=== PATIENT | female | born 1995 | race Caucasian/White ===

== ENCOUNTER 2017-08-31 09:10 | Inpatient (IN) | payer OTHER ==
[2017-08-31] VITALS (11 sets, daily range): BP systolic 115–138; BP diastolic 65–84; Ht 154.9 cm; Wt 80.7 kg
[~2017-08-31] VITALS: Ht 154.9 cm; Wt 80.7 kg
[2017-08-31 10:20] LABS: HEMATOCRIT 33.8 % (36.0-48.0); HEMOGLOBIN 11.3 g/dL (12-16); MCH 28.1 pg (26.0-34.0); MCHC 33.4 g/dL (31.0-37.0); MCV 84.1 fL (80.0-100.0); MEAN PLATELET VOLUME 10.6 fL (7.4-10.4); RBC 4.02 10x6/uL (4.00-5.40); RDW 14.3 % (11.5-14.5); WBC 7.8 10x3/uL (4.8-10.8)
[2017-08-31] MEDS ORDERED: FERROUS SULFATE PO (13:04)
[2017-08-31] MEDS ORDERED: PRENATAL COMPLE1 TAB PO (15:47)
[2017-08-31 21:15] LABS: BASOPHILS 0.2 % (0-2); EOSINOPHILS 0.5 % (0-7); HEMATOCRIT 28.9 % (36.0-48.0); HEMOGLOBIN 9.5 g/dL (12-16); IMMATURE GRANULOCYTES 0.3 % (0-5); LYMPHOCYTES 23.8 % (15-50); MCH 27.5 pg (26.0-34.0); MCHC 32.9 g/dL (31.0-37.0); MCV 83.5 fL (80.0-100.0); MEAN PLATELET VOLUME 10.4 fL (7.4-10.4); MONOCYTES 5.9 % (2-11); NEUTROPHILS 69.3 % (40-80); RBC 3.46 10x6/uL (4.00-5.40); RDW 14.2 % (11.5-14.5)
[2017-08-31 21:17] LABS: PLATELET COUNT 167 10x3/uL (130-400); WBC 10.3 10x3/uL (4.8-10.8)
[2017-09-01 02:25] VITALS: BP 118/75
[2017-09-01 06:57] VITALS: BP 113/70
[2017-09-01 07:21] LABS: RAPID PLASMA REAGIN Non Reactive (Non Reactive)
[2017-09-01 08:54] LABS: BASOPHILS 0.3 % (0-2); EOSINOPHILS 1.1 % (0-7); HEMATOCRIT 24.5 % (36.0-48.0); HEMOGLOBIN 8.2 g/dL (12-16); IMMATURE GRANULOCYTES 0.1 % (0-5); LYMPHOCYTES 22.7 % (15-50); MCH 27.7 pg (26.0-34.0); MCHC 33.5 g/dL (31.0-37.0); MCV 82.8 fL (80.0-100.0); MEAN PLATELET VOLUME 9.8 fL (7.4-10.4); MONOCYTES 7.4 % (2-11); NEUTROPHILS 68.4 % (40-80); PLATELET COUNT 139 10x3/uL (130-400); RBC 2.96 10x6/uL (4.00-5.40); RDW 14.4 % (11.5-14.5)
[2017-09-01 09:01] LABS: WBC 7.1 10x3/uL (4.8-10.8)
[2017-09-01 11:40] VITALS: BP 104/61
[2017-09-01 20:25] VITALS: BP 128/65
[2017-09-02 02:56] VITALS: BP 105/61
[2017-09-02 08:08] VITALS: BP 123/70
[2017-09-02] MEDS ORDERED: DILAUDID2 MG PO (08:20)
== END 2017-09-02 13:30 | disposition home or self-care (01) | DRG 766 ==
LOC: D.LD 09:10 → D.SDCHOLD 12:00 → D.LD 09-01 11:49
PROVIDERS: Obstetrics & Gynecology
PROC: 10D00Z1 Extraction of Products of Conception, Low, Open Approach (ICD-10-PCS; principal; 2017-09-01)
DX: O33.5XX0 Maternal care for disproportion due to unusually large fetus, not applicable or unspecified (principal); Z3A.39 39 weeks gestation of pregnancy; Z37.0 Single live birth

== ENCOUNTER → 2017-11-29 11:56 | Outpatient (CLI) | payer OTHER ==
[~2017-11-29 11:56] MED LIST: DILAUDID2 MG PO; FERROUS SULFATE PO; PRENATAL COMPLE1 TAB PO
== END | disposition home or self-care (01) ==
LOC: D.CT 11:56
DX: R10.31 Right lower quadrant pain (principal)

== ENCOUNTER 2020-01-27 13:13 | Outpatient (CLI) | payer OTHER ==
[2020-01-27 14:33] LABS: BASOPHILS 0.1 % (0-2); EOSINOPHILS 0.6 % (0-7); HEMATOCRIT 30.3 % (36.0-48.0); IMMATURE GRANULOCYTES 0.1 % (0-5); LYMPHOCYTES 23.6 % (15-50); MCV 84.9 fL (80.0-100.0); MEAN PLATELET VOLUME 8.8 fL (7.4-10.4); MONOCYTES 6.5 % (2-11); NEUTROPHILS 69.1 % (40-80); RBC 3.57 10x6/uL (4.00-5.40); RDW 12.7 % (11.5-14.5); WBC 7.3 10x3/uL (4.8-10.8)
[2020-01-27 15:03] LABS: PLATELET COUNT 255 10x3/uL (130-400)
[2020-01-27 15:07] LABS: BILIRUBIN NEGATIVE (NEGATIVE); KETONE MODERATE mg/dL (NEGATIVE); NITRITE NEGATIVE (NEGATIVE); UROBILINOGEN NORMAL mg/dL (< 2)
[2020-01-27 15:13] LABS: EPITHELIAL CELLS 0-5 /hpf (0-5); WHITE CELLS - URINE 0-5 HPF (0-4)
[2020-01-27 15:14] LABS: BACTERIA MANY /HPF (NONE SEEN)
== END 2020-01-27 18:27 | disposition home or self-care (01) ==
LOC: D.LDO 13:13
PROVIDERS: Obstetrics & Gynecology; ATTEND Obstetrics & Gynecology
DX: O26.899 Other specified pregnancy related conditions, unspecified trimester (principal); R10.9 Unspecified abdominal pain